=== PATIENT | male | born 1985 | race Hispanic/Latino ===

== ENCOUNTER 2018-01-18 10:35 | Emergency (ER) | payer SELFPAY ==
[2018-01-18] MEDS ORDERED: CEFAZOLIN SODIUM 1 GM VIAL ONE (11:08)
== END 2018-01-18 11:45 | disposition home or self-care (01) ==
LOC: EDH 10:35
DX: S61.401A Unspecified open wound of right hand, initial encounter (principal); I10 Essential (primary) hypertension; Z72.0 Tobacco use; V28.0XXA Motorcycle driver injured in noncollision transport accident in nontraffic accident, initial encounter; Y93.55 Activity, bike riding; Y92.89 Other specified places as the place of occurrence of the external cause; Y99.8 Other external cause status
CPT/HCPCS: 73070; 96372; 99284; A4218; J0690

== ENCOUNTER 2018-07-19 17:14 | Emergency (ER) | payer OTHER | END 2018-07-19 18:14 | disposition home or self-care (01) | LOC: EDH 17:14 | DX: M77.9 Enthesopathy, unspecified (principal); I10 Essential (primary) hypertension; Z72.0 Tobacco use | CPT/HCPCS: 73100; 73130 ==

== ENCOUNTER 2019-11-08 12:20 | Emergency (ER) | payer OTHER | END 2019-11-08 13:33 | disposition left against medical advice (07) | LOC: EDH 12:20 | DX: Z53.21 Procedure and treatment not carried out due to patient leaving prior to being seen by health care provider (principal); I10 Essential (primary) hypertension; Z72.0 Tobacco use ==